=== PATIENT | female | born 1960 | race Caucasian/White ===

== ENCOUNTER 2019-02-27 16:00 | Emergency (ER) | payer BC ==
[~2019-02-27] VITALS: Ht 167.6 cm; Wt 86.2 kg
[2019-02-27 16:09] VITALS: Ht 167.6 cm; Wt 86.2 kg
[2019-02-27 17:38] VITALS: BP 151/73
== END 2019-02-27 17:38 | disposition home or self-care (01) ==
LOC: ED 16:00
DX: S62.305A Unspecified fracture of fourth metacarpal bone, left hand, initial encounter for closed fracture (principal); S62.307A Unspecified fracture of fifth metacarpal bone, left hand, initial encounter for closed fracture; I10 Essential (primary) hypertension; E11.9 Type 2 diabetes mellitus without complications; E78.00 Pure hypercholesterolemia, unspecified; V49.9XXA Car occupant (driver) (passenger) injured in unspecified traffic accident, initial encounter; Y93.89 Activity, other specified; Y92.89 Other specified places as the place of occurrence of the external cause; Y99.8 Other external cause status